=== PATIENT | male | born 1965 | race Caucasian/White ===

== ENCOUNTER 2023-09-28 10:23 | Emergency (ER) | payer SELFPAY ==
[~2023-09-28] VITALS: Ht 170.2 cm; Wt 64.0 kg
[2023-09-28 10:37] VITALS: BP 130/78; PULSE 83; RESP 16; TEMP 97.6; O2SAT 98
== END 2023-09-28 14:38 | disposition home or self-care (01) ==
LOC: ER 13:13
DX: S09.8XXA Other specified injuries of head, initial encounter (principal); W18.39XA Other fall on same level, initial encounter; Y93.89 Activity, other specified; Y92.89 Other specified places as the place of occurrence of the external cause; Y99.8 Other external cause status
CPT/HCPCS: 99284